=== PATIENT | male | born 1940 | race Caucasian/White ===

== ENCOUNTER 2017-01-29 13:51 | Emergency (ER) | payer BC ==
[2017-01-29 11:00] LABS: ER CBC TAT 0 Hrs 05 Mins; HEMOGLOBIN 12.9 g/dL (13.6-17.8); MEAN CORPUS HGB CONC 33.2 g/dL (32.0-36.0); MEAN CORPUSCULAR HEMOGLOB 28.7 pg (26.0-34.0); MEAN CORPUSCULAR VOLUME 86.4 fL (80-100); MEAN PLATELET VOLUME 10.5 fL (9.2-13.0); RBC DISTRIBUTION WIDTH 14.3 % (12.0-16.0); WHITE BLOOD CELLS 10.3 10/3/uL (4.5-10.5)
[2017-01-29 11:03] LABS: HEMATOCRIT 38.9 % (40.0-51.0); MANUAL DIFF YES %; PLATELET COUNT 250 10/3/uL (150-400)
[2017-01-29 11:06] LABS: INTERNATIONAL NORMAL RATI 1.1 UNITS (-); PARTIAL THROMBO TIME 30.2 SEC (22.5-37.2); PROTIME (NOT ORD) 13.8 SEC (12.0-14.5)
[2017-01-29 11:19] LABS: BUN (BLOOD UREA NITROGEN) 7 MG/DL (6-23); CALCIUM, SERUM 8.6 MG/DL (8.5-10.4); CHEST PAIN PROFILE TAT 0 Hrs 24 Mins; CHLORIDE, SERUM 99 MMOL/L (96-112); CO2 (CARBON DIOXIDE) 30 MMOL/L (24-34); CREATININE 0.56 MG/DL (0.70-1.30); GFR AFRICAN AMERICAN 118 ML/MIN (>=60); GFR NON AFRICAN AMERICAN 102 ML/MIN (>=60); GLUCOSE, SERUM 100 MG/DL (60-99); POTASSIUM, SERUM 3.5 MMOL/L (3.5-5.3); SODIUM, SERUM 139 MMOL/L (135-148); TROPONIN I <0.02 NG/ML (<0.05)
[2017-01-29 11:20] LABS: BAND NEUTROPHILS 3 %; ER DIFF TAT 0 Hrs 25 Mins; LYMPHOCYTES 24 %; LYMPHOCYTES ABSOLUTE (CALC) 2.27 10/3/uL (0.67-4.30); MONOCYTES 14 %; MONOCYTES ABSOLUTE (CALC) 1.65 10/3/uL (0.21-1.20); NEUTROPHILS ABSOLUTE (CALC) 6.39 10/3/uL (2.02-8.40); PLATELET ESTIMATE ADQ (ADEQUATE); RBC MORPHOLOGY NORM (NORMAL); SEGMENTED NEUTROPHIL (0) 59 %; TOTAL NUCLEATED CELLS 100
[2017-01-29 13:36] LABS: INFLUENZA A SCREEN NEGATIVE (NEGATIVE); INFLUENZA B SCREEN NEGATIVE (NEGATIVE)
[2017-01-29 13:43] LABS: ALLENS TEST Pos; CARBOXYHEMOGLOBIN 1.5 % (0-3); DEVICE NC; HCO3 (ACTUAL BICARBONATE) 28.2 MEQ/L (23-27); INSTRUMENT SERIAL # 8087; METHEMOGLOBIN 0.2 % (0-3); O2 CONTENT 17.5 VOL% (18-24); OPERATOR ID 14904~00; PCO2 (CO2 TENSION) 41 MMHG (35-45); PO2 (O2 TENSION) 90 MMHG (79-93); SAMPLE Arterial; pH 7.46 (7.37-7.43)
[~2017-01-29 13:51] MED LIST: ADVIL PO; ALEVE220 MG PO; ALKA SELZER PO; ALKA-SELTZE1 OR; BEN25 PO; CENTRUM PO; CORICIDI2 PO; FLOMAX4 PO; PRAVACHOL40 MG PO; PRILO PO; PRIN10 PO; PRIN5 PO; PROSCAR5 PO; T PO
[2017-03-20] MEDS ORDERED: ANOROELLIPTA INH (15:05)
[2017-05-12] MEDS ORDERED: T (08:53)
[2017-05-12] MEDS ORDERED: ACET500CAP PO (08:53)
== END 2017-01-29 16:11 | disposition home or self-care (01) ==
LOC: ER 13:51
PROVIDERS: Hospitalist
DX: J44.1 Chronic obstructive pulmonary disease with (acute) exacerbation (principal); R59.9 Enlarged lymph nodes, unspecified; I10 Essential (primary) hypertension; K21.9 Gastro-esophageal reflux disease without esophagitis; F17.200 Nicotine dependence, unspecified, uncomplicated; Z79.899 Other long term (current) drug therapy; Z85.72 Personal history of non-Hodgkin lymphomas
CPT/HCPCS: 36600; 71020; 71275; 80048; 82805; 83735; 83880; 84484; 85025; 85610; 85730; 87804; 93005; 94640; 96374; 99285; J2930; Q9967

== ENCOUNTER 2017-03-27 11:07 | Day surgery (SDC) | payer BC ==
--- NOTE | ~2017-03-27 | EGD ---
EGD REPORT [facility] [address] [address] NAME: BENJAMIN ROJAS : [birth year] STATUS : [facility] PAT#: [id number] AGE: 76 ADM/REG DATE : 03/27/17 MR#: [id number] REPORT SERV DATE: 03/27/17 DICTATED BY: SWATI KNIGHT DATE: 03/27/17 REPORT STATUS : Draft TRANSCRIBED BY: [employer] DATE: 03/27/17 [facility] Patient Name: Benjamin Rojas Date of : 1940 Attending MD: SWATI KNIGHT MD Procedure Date No Time: 03/27/2017 Procedure: Colonoscopy Indications: Heme positive stool Referring MD: Shi GLASGOW MD Medicines: See the Anesthesia note for documentation of the administered medications Complications: No immediate complications. Procedure: Pre-Anesthesia Assessment: - ASA Grade Assessment: III - A patient with severe systemic disease. After I obtained informed consent, the scope was passed under direct vision. Throughout the procedure, the patient's blood pressure, pulse, and oxygen saturations were monitored continuously. The PCF [id number] was introduced through the anus and advanced to the cecum, identified by appendiceal orifice and ileocecal valve. The colonoscopy was performed without difficulty. The patient tolerated the procedure well. The quality of the bowel preparation was adequate. Findings: The perianal and digital rectal examinations were normal. Diverticula were found in the sigmoid colon and in the ascending colon. Internal hemorrhoids were found during retroflexion and were medium-sized. Two angioectasias were found in the ascending colon and in the cecum. Three sessile polyps were found in the ascending colon. The polyps were small in size. These polyps were removed with a cold biopsy forceps. Resection and retrieval were complete. A sessile polyp was found in the cecum. The polyp was 10 mm in size. The polyp was removed with a hot snare. Resection and retrieval were complete. 2 cm spread out polyp in proximal ascending colon near ICV, Biopsies were taken with a cold forceps for histology. Area was successfully injected with Spot (carbon black) for tattooing. Three sessile polyps were found in the distal ascending colon. The polyps were 10 mm in size. These polyps were removed with a hot snare. Resection and retrieval were complete. A sessile polyp was found in the proximal ascending colon. The polyp was 10 mm in size. The polyp was removed with a hot snare. Resection and EGD REPORT [address] [address] NAME: BENJAMIN ROJAS : [birth year] STATUS : [facility] PAT#: [id number] AGE: 76 ADM/REG DATE : 03/27/17 MR#: [id number] REPORT SERV DATE: 03/27/17 DICTATED BY: SWATI KNIGHT DATE: 03/27/17 REPORT STATUS : Draft TRANSCRIBED BY: [employer] DATE: 03/27/17 retrieval were complete. A sessile polyp was found in the transverse colon. The polyp was 10 mm in size. The polyp was removed with a hot snare. Resection and retrieval were complete. A sessile polyp was found in the transverse colon. The polyp was 15 mm in size. The polyp was removed with a piecemeal technique using a hot snare. Resection and retrieval were complete. One hemostatic clip was successfully placed. This was done to prevent bleeding. Three sessile polyps were found in the descending colon. The polyps were 10 mm in size. These polyps were removed with a hot snare. Resection and retrieval were complete. Focal sigmoid ulceration, Biopsies were taken with a cold forceps for histology. A sessile polyp was found in the sigmoid colon. The polyp was 10 mm in size. The polyp was removed with a hot snare. Resection and retrieval were complete. A sessile polyp was found in the recto-sigmoid colon. The polyp was small in size. The polyp was removed with a cold biopsy forceps. Resection and retrieval were complete. A pedunculated polyp was found in the distal sigmoid colon. The polyp was 10 mm in size. The polyp was removed with a hot snare. Resection and retrieval were complete. A sessile polyp was found in the rectum. The polyp was small in size. The polyp was removed with a cold biopsy forceps. Resection and retrieval were complete. Impression: - Diverticulosis in the sigmoid colon and in the ascending colon. - Internal hemorrhoids. - Two colonic angioectasias. - Three small polyps in the ascending colon. Resected and retrieved. - One 10 mm polyp in the cecum. Resected and retrieved. - 2 cm spread out polyp in proximal ascending colon near ICV - Three 10 mm polyps in the distal ascending colon. Resected and retrieved. - One 10 mm polyp in the proximal ascending colon. Resected and retrieved. - One 10 mm polyp in the transverse colon. Resected and retrieved. - One 15 mm polyp in the transverse colon. Resected and retrieved. Clip was placed. - Three 10 mm polyps in the descending colon. Resected and retrieved. - Focal sigmoid ulceration - One 10 mm polyp in the sigmoid colon. Resected and EGD REPORT [address] [address] NAME: BENJAMIN ROJAS : [birth year] STATUS : [facility] PAT#: [id number] AGE: 76 ADM/REG DATE : 03/27/17 MR#: [id number] REPORT SERV DATE: 03/27/17 DICTATED BY: SWATI KNIGHT DATE: 03/27/17 REPORT STATUS : Draft TRANSCRIBED BY: [employer] DATE: 03/27/17 retrieved. - One small polyp at the recto-sigmoid colon. Resected and retrieved. - One 10 mm polyp in the distal sigmoid colon. Resected and retrieved. - One small polyp in the rectum. Resected and retrieved. Recommendation: - Patient has a contact number available for emergencies. The signs and symptoms of potential delayed complications were discussed with the patient. Return to normal activities tomorrow. Written discharge instructions were provided to the patient. - Continue present medications. - Repeat colonoscopy in 6 months for surveillance. - Return to my office in 6 months. - Continue present medications. - See EGD for diet instructions Await biospy, then refer to surgeon for extended right hemicolectomy Procedure Code(s): --- Professional --- 70513, Colonoscopy, flexible, proximal to splenic flexure; with removal of tumor(s), polyp(s), or other lesion(s) by snare technique 14339, 59, Colonoscopy, flexible, proximal to splenic flexure; with biopsy, single or multiple 58458, Colonoscopy, flexible, proximal to splenic flexure; with directed submucosal injection(s), any substance Diagnosis Code(s): --- Professional --- K64.8, Other hemorrhoids K57.30, Diverticulosis of large intestine without perforation or abscess without bleeding K55.20, Angiodysplasia of colon without hemorrhage K62.1, Rectal polyp D12.7, Benign neoplasm of rectosigmoid junction D12.5, Benign neoplasm of sigmoid colon D12.4, Benign neoplasm of descending colon D12.3, Benign neoplasm of transverse colon D12.0, Benign neoplasm of cecum D12.2, Benign neoplasm of ascending colon R19.5, Other fecal abnormalities CPT copyright 2013 [employer]. All rights reserved. EGD REPORT [address] [address] NAME: BENJAMIN ROJAS : [birth year] STATUS : [facility] PAT#: [id number] AGE: 76 ADM/REG DATE : 03/27/17 MR#: [id number] REPORT SERV DATE: 03/27/17 DICTATED BY: SWATI KNIGHT DATE: 03/27/17 REPORT STATUS : Draft TRANSCRIBED BY: [employer] DATE: 03/27/17 The codes documented in this report are preliminary and upon director of collections review may be revised to meet current compliance requirements. Swati Knight MD SWATI KNIGHT MD 03/27/2017 1:27 PM This report has been signed electronically. Number of Addenda: 0 Note Initiated On: 03/27/2017 12:08 PM Scope Withdrawal Time 0 hours 37 minutes 58 seconds [id number] [id number]
--- NOTE | ~2017-03-27 | EGD ---
EGD REPORT [facility] [address] [address] NAME: BENJAMIN ROJAS : [birth year] STATUS : [facility] [place] PAT#: [id number] AGE: 76 ADM/REG DATE : 03/27/17 MR#: [id number] REPORT SERV DATE: 03/27/17 DICTATED BY: SWATI KNIGHT DATE: 03/27/17 REPORT STATUS : Draft TRANSCRIBED BY: [employer] DATE: 03/27/17 [facility] Patient Name: Benjamin Rojas Date of : 1940 Attending MD: SWATI KNIGHT MD Procedure Date No Time: 03/27/2017 Procedure: Upper GI endoscopy Indications: Heme positive stool Referring MD: Shi GLASGOW MD Medicines: See the Anesthesia note for documentation of the administered medications Complications: No immediate complications. Procedure: Pre-Anesthesia Assessment: - ASA Grade Assessment: III - A patient with severe systemic disease. After obtaining informed consent, the endoscope was passed under direct vision. Throughout the procedure, the patient's blood pressure, pulse, and oxygen saturations were monitored continuously. The GIF H190 [id number] was introduced through the mouth, and advanced to the second part of duodenum. The upper GI endoscopy was accomplished without difficulty. The patient tolerated the procedure well. Findings: Two angioectasias were found in the duodenal bulb and in the second part of the duodenum. A single small sessile polyp was found in the gastric fundus (on retroflexion). Biopsies were taken with a cold forceps for histology. A 2 cm hiatus hernia was present. A mild Schatzki ring (acquired) was found at the gastroesophageal junction. A guidewire was placed and the scope was withdrawn. Dilation was performed with a Savary dilator with no resistance at 48 Fr. Impression: - Two angioectasias in the duodenum. - A single gastric polyp. Biopsied. - Hiatus hernia. - Mild Schatzki ring. Dilated. Recommendation: - Patient has a contact number available for emergencies. The signs and symptoms of potential delayed complications were discussed with the patient. Return to normal activities tomorrow. Written discharge instructions were provided to the patient. - Continue present medications. EGD REPORT [address] [place]. [address] NAME: BENJAMIN ROJAS : 44 STATUS : REG [facility]#: [id number] AGE: 76 ADM/REG DATE : 03/27/17 MR#: [id number] REPORT SERV DATE: 03/27/17 DICTATED BY: SWATI KNIGHT DATE: 03/27/17 REPORT STATUS : Draft TRANSCRIBED BY: [employer] DATE: 03/27/17 - Full liquids today, soft diet tomorrow, regular diet the following day - If becomes anemic, would then ablate avms - FOR YOUR BIOPSY RESULTS: Please go to [email or web address] and register to receive your results via the portal. Your biopsy results will be posted there in about 7 to 10 days. IF you do not see result in 10 days, call office. Procedure Code(s): --- Professional --- 60010, Esophagogastroduodenoscopy, flexible, transoral; with insertion of guide wire followed by passage of dilator(s) through esophagus over guide wire 44391, Esophagogastroduodenoscopy, flexible, transoral; with biopsy, single or multiple Diagnosis Code(s): --- Professional --- K31.819, Angiodysplasia of stomach and duodenum without bleeding K31.7, Polyp of stomach and duodenum K44.9, Diaphragmatic hernia without obstruction or gangrene K22.2, Esophageal obstruction R19.5, Other fecal abnormalities CPT copyright 2013 [employer]. All rights reserved. The codes documented in this report are preliminary and upon gluing machine feeder review may be revised to meet current compliance requirements. Swati Knight MD SWATI KNIGHT MD 03/27/2017 12:29 PM This report has been signed electronically. Number of Addenda: 0 Note Initiated On: 03/27/2017 12:13 PM Scope Withdrawal Time 0 hours 0 minutes 0 seconds [id number] [id number]
[~2017-03-27 11:07] MED LIST changes: +ANOROELLIPTA INH
[2017-05-12] MEDS ORDERED: T (08:53)
[2017-05-12] MEDS ORDERED: ACET500CAP PO (08:53)
== END 2017-03-27 23:59 | disposition home or self-care (01) ==
LOC: DMU 11:07
PROVIDERS: Internal Medicine Gastroenterology
PROC: 0DBN8ZX Excision of Sigmoid Colon, Via Natural or Artificial Opening Endoscopic, Diagnostic (ICD-10-PCS; 2017-03-27)
PROC: 0DBM8ZX Excision of Descending Colon, Via Natural or Artificial Opening Endoscopic, Diagnostic (ICD-10-PCS; 2017-03-27)
PROC: 0DBL8ZX Excision of Transverse Colon, Via Natural or Artificial Opening Endoscopic, Diagnostic (ICD-10-PCS; 2017-03-27)
PROC: 0DBK8ZX Excision of Ascending Colon, Via Natural or Artificial Opening Endoscopic, Diagnostic (ICD-10-PCS; 2017-03-27)
PROC: 3E0H8GC Introduction of Other Therapeutic Substance into Lower GI, Via Natural or Artificial Opening Endoscopic (ICD-10-PCS; principal; 2017-03-27 13:00)
PROC: 0D758ZZ Dilation of Esophagus, Via Natural or Artificial Opening Endoscopic (ICD-10-PCS; 2017-03-27 13:00)
PROC: 0DB68ZX Excision of Stomach, Via Natural or Artificial Opening Endoscopic, Diagnostic (ICD-10-PCS; 2017-03-27 13:00)
PROC: 0DBH8ZX Excision of Cecum, Via Natural or Artificial Opening Endoscopic, Diagnostic (ICD-10-PCS; 2017-03-27 13:00)
PROC: 0DBP8ZX Excision of Rectum, Via Natural or Artificial Opening Endoscopic, Diagnostic (ICD-10-PCS; 2017-03-27 13:00)
DX: D12.5 Benign neoplasm of sigmoid colon (principal); D12.7 Benign neoplasm of rectosigmoid junction; D12.4 Benign neoplasm of descending colon; D12.3 Benign neoplasm of transverse colon; D12.2 Benign neoplasm of ascending colon; D12.0 Benign neoplasm of cecum; K62.1 Rectal polyp; K64.8 Other hemorrhoids; K57.30 Diverticulosis of large intestine without perforation or abscess without bleeding; K55.20 Angiodysplasia of colon without hemorrhage; K31.819 Angiodysplasia of stomach and duodenum without bleeding; K31.7 Polyp of stomach and duodenum; K44.9 Diaphragmatic hernia without obstruction or gangrene; K22.2 Esophageal obstruction; I10 Essential (primary) hypertension; J44.9 Chronic obstructive pulmonary disease, unspecified; Z90.89 Acquired absence of other organs; Z98.890 Other specified postprocedural states
CPT/HCPCS: 88305